=== PATIENT | male | born 1955 | race Caucasian/White ===

== ENCOUNTER 2024-05-03 15:23 | Outpatient (CLI) | payer MEDICARE, BC | END 2024-05-03 15:24 | disposition home or self-care (01) | LOC: CSHRAD 15:23 | PROVIDERS: ATTEND Family Medicine | DX: M47.22 Other spondylosis with radiculopathy, cervical region (principal); M50.322 Other cervical disc degeneration at C5-C6 level; M50.323 Other cervical disc degeneration at C6-C7 level | CPT/HCPCS: 72050 ==

== ENCOUNTER 2024-11-06 15:26 | Outpatient (CLI) | payer MEDICARE, BC | END 2024-11-06 15:27 | disposition home or self-care (01) | LOC: CSHRAD 15:26 | PROVIDERS: ATTEND Family Medicine | DX: T17.310A Gastric contents in larynx causing asphyxiation, initial encounter (principal) | CPT/HCPCS: 71046 ==